=== PATIENT | male | born 1980 | race Caucasian/White ===

== ENCOUNTER 2021-05-24 19:31 | Emergency (ER) | payer OTHER ==
[~2021-05-24] VITALS: Ht 182.9 cm; Wt 104.4 kg
[~2021-05-24 19:31] MED LIST: ACET-1600 PO; CEPH-376 PO; HYDR-3248 PO; OXYC-380 PO; OXYC5CAP2 PO
--- NOTE | 2021-05-24 19:47 | NUR ---
PT AMBULATORY TO ROOM 21 W/ C/O LLQ ABD L HIP AREA PAIN STARTED YESTERDAY AFTER PT STATES HE WANTED TO GET A PICTURE OF THE SUNSET AT AROUND 1900 AND PT TRIED TO GET UP AND GIULIA A METAL GUARD RAIL AND PT'S FOOT SLIPT AND FELL FORWARD ONTO HIS STOMACH AND NOW HAS INCREASED SWELLING AND BRUISING. PT RESTING ON GURNEY. NADN. MONITORS APPLIED. VSS. WARM BLANKET PROVIDED. CALL LIGHT IN REACH. ERP DR. OLMEDO AT BEDSIDE FOR EVAL.
[2021-05-24] MEDS ORDERED: SODIUM CHLORIDE FLUSH 10ML SYR IVF ONE (20:00)
[2021-05-24 20:08] LABS: MICROSCOPIC NOT IND
[2021-05-24 20:20] LABS: BASOPHILS % (AUTO) 0 % (0-1); EOSINOPHILS % (AUTO) 1 % (1-7); LYMPHOCYTES % (AUTO) 18 % (22-44); MEAN CORPUSCULAR HEMOGLOBIN 33.9 pg (27.5-34.5); MEAN CORPUSCULAR HGB CONC 35.1 g/dL (33.2-36.2); MEAN PLATELET VOLUME 7.2 fL (7.4-10.4); MONOCYTES % (AUTO) 16 % (2-9); NEUTROPHILS % (AUTO) 66 % (42-75); PLATELET COUNT 240 x10^3/uL (130-400); RED CELL DISTRIBUTION WIDTH 13.5 % (9.4-14.8)
[2021-05-24 20:30] LABS: ALBUMIN 4.3 g/dL (3.4-5.0); ANION GAP 10 mmol/L (5-15); CALCIUM 8.7 mg/dL (8.5-10.1); CHLORIDE 104 mmol/L (98-107); CREATININE 1.04 mg/dL (0.7-1.3)
--- NOTE | 2021-05-24 20:50 | NUR ---
REPORT GIVEN TO FABRIZIO HASSAN RN.
[2021-05-24] MEDS ORDERED: OMNIPAQUE 350 MG/ML, 100ML BOTTLE ONE (20:51)
--- NOTE | 2021-05-24 21:08 | NUR ---
PT. RESTING ON GURNEY WITH ALL MONITORS IN PLACE. PT. C/O PAIN BUT DECLINES ANYTHING FOR PAIN AT THIS TIME. AWAITING CT SCAN READ. ALL SAFETY MEASURES OBSERVED.
[2021-05-24 21:41] VITALS: BP 124/61
== END 2021-05-24 21:44 | disposition home or self-care (01) ==
LOC: ED 20:01
DX: S30.1XXA Contusion of abdominal wall, initial encounter (principal); W18.30XA Fall on same level, unspecified, initial encounter; Y93.89 Activity, other specified; Y92.410 Unspecified street and highway as the place of occurrence of the external cause; Y99.8 Other external cause status
CPT/HCPCS: 36415; 74177; 80048; 81003; 82040; 85025; 99285; Q9967